=== PATIENT | female | born 2000 | race Caucasian/White ===

== ENCOUNTER 2023-04-03 12:52 | Emergency (ER) | payer MEDICAID, OTHER ==
[~2023-04-03] VITALS: Ht 167.6 cm; Wt 54.5 kg
[~2023-04-03 12:52] MED LIST: NEOM10DR45 LEFT EAR
[2023-04-03 13:15] LABS: BASOPHILS # (AUTO) 0.1 X10'3 (0-0.2); BASOPHILS % (AUTO) 1.3 % (0-1); EOSINOPHILS # (AUTO) 0.1 X10'3 (0-0.9); EOSINOPHILS % (AUTO) 2.3 % (0-6); HEMATOCRIT 40.1 % (35.0-45.0); HEMOGLOBIN 13.3 g/dl (12.0-16.0); LYMPHOCYTES # (AUTO) 2.2 X10'3 (1.1-4.8); LYMPHOCYTES % (AUTO) 39.8 % (21-51); MEAN CORPUSCULAR HEMOGLOBIN 31.1 PG (27.0-31.0); MEAN CORPUSCULAR HGB CONC 33.1 g/dL (33.0-36.5); MEAN PLATELET VOLUME 8.6 FL (7.4-10.4); MONOCYTES # (AUTO) 0.6 X10'3 (0-0.9); MONOCYTES % (AUTO) 10.8 % (2-12); NEUTROPHILS # (AUTO) 2.6 X10'3 (1.8-7.7); NEUTROPHILS % (AUTO) 45.8 % (42-75); PLATELET COUNT 241 X10'3 (140-440); RED BLOOD COUNT 4.27 X10'6 (4.20-5.60); RED CELL DISTRIBUTION WIDTH 13.1 % (11.5-14.5); WHITE BLOOD COUNT 5.6 X10'3 (4.5-11.0)
[2023-04-03] MEDS ORDERED: ondansetron/PF 4mg/2ml inj IV ONE (13:15)
[2023-04-03] MEDS ORDERED: morphine 2 MG/ML inj. syringe IV ONE (13:15)
[2023-04-03] MEDS ORDERED: pantoprazole 40mg IV 40 MG in normal saline 100ml IV soln 100 ML IV ONE (13:15)
[2023-04-03 13:29] LABS: ALANINE AMINOTRANSFERASE 15 U/L (12-78); ALBUMIN 4.2 G/DL (3.4-5.0); ALBUMIN/GLOBULIN RATIO 1.4 (1.1-1.5); ALKALINE PHOSPHATASE 50 IU/L (46-116); ANION GAP 8 (8-16); ASPARTATE AMINO TRANSFERASE 20 U/L (10-37); BILIRUBIN,TOTAL 0.4 MG/DL (0.1-1.0); BLOOD UREA NITROGEN 7 MG/DL (7-18); CALCIUM 9.2 MG/DL (8.5-10.1); CHLORIDE 105 MMOL/L (99-107); CREATININE 0.78 MG/DL (0.40-0.90); GLUCOSE 70 MG/DL (70-104); POTASSIUM 4.2 MMOL/L (3.5-5.1); SODIUM 141 MMOL/L (135-145); TOTAL CARBON DIOXIDE 28.1 MMOL/L (24-32); TOTAL PROTEIN 7.2 G/DL (6.4-8.2); eGFR > 90 ML/MIN
[2023-04-03 13:37] LABS: MAGNESIUM 2.2 MG/DL (1.5-2.4)
[2023-04-03 14:22] LABS: BETA HCG,QUANTITATIVE < 1.0 mIU/ml; LIPASE 62 U/L (73-393)
[2023-04-03 15:53] LABS: CLARITY,URINE SLIGHTLY CLOUDY (Clear); COLOR,URINE YELLOW (Yellow); GLUCOSE, URINE NEGATIVE (Neg); KETONES,URINE NEGATIVE (Neg); LEUKOCYTE ESTERASE ,URINE NEGATIVE (Neg); NITRITES, URINE NEGATIVE (Neg); OCCULT BLOOD,URINE SMALL (Neg); PH,URINE 6.5 (4.8-8.0); PROTEIN,URINE NEGATIVE (Neg); UROBILINOGEN,URINE 0.2 E.U/dL (0.2-1.0)
[2023-04-03 16:04] LABS: UA COLLECTION TYPE CLN CATCH MIDSTREAM
[2023-04-03 16:05] LABS: BACTERIA,URINE FEW /HPF (Neg); SQUAMOUS EPITHELIAL CELL,UR MANY /LPF (FEW); WBC,URINE 0-4 /HPF (0-4)
[2023-04-03 16:42] VITALS: BP 103/47
== END 2023-04-03 16:47 | disposition home or self-care (01) ==
LOC: ER 12:53
DX: M94.0 Chondrocostal junction syndrome [Tietze] (principal); J45.909 Unspecified asthma, uncomplicated; F12.10 Cannabis abuse, uncomplicated; Z86.2 Personal history of diseases of the blood and blood-forming organs and certain disorders involving the immune mechanism
CPT/HCPCS: 36415; 71045; 74176; 80053; 81001; 83690; 83735; 83880; 84484; 84702; 85025; 93005; 96365; 96375; 99285; C9113; J2270; J2405; J3490